=== PATIENT | male | born 1935 | race Caucasian/White ===

== ENCOUNTER 2018-04-12 20:44 | Emergency (ER) | payer MEDICARE, OTHER ==
[~2018-04-12] VITALS: Ht 172.7 cm; Wt 109.7 kg
[~2018-04-12 20:44] MED LIST: HYDR25TA4 PO
[2018-04-12] MEDS ORDERED: cloNIDine 0.1 mg tablet PO ONE (21:10)
[2018-04-12 21:57] VITALS: BP 150/94
== END 2018-04-12 22:10 | disposition home or self-care (01) ==
LOC: ER 20:45
DX: I10 Essential (primary) hypertension (principal); G31.9 Degenerative disease of nervous system, unspecified; Z85.828 Personal history of other malignant neoplasm of skin; Z79.899 Other long term (current) drug therapy
CPT/HCPCS: 70450; 99284

== ENCOUNTER 2018-09-02 15:35 | Emergency (ER) | payer MEDICARE, OTHER ==
[~2018-09-02] VITALS: Ht 175.3 cm; Wt 100.0 kg
[2018-09-02 15:41] VITALS: BP 188/88
[2018-09-02] MEDS ORDERED: tranexamic acid 100mg/ml inj. TP ONE (17:40)
== END 2018-09-02 18:52 | disposition home or self-care (01) ==
LOC: ER 15:35
DX: R04.0 Epistaxis (principal); I10 Essential (primary) hypertension; Z79.899 Other long term (current) drug therapy
CPT/HCPCS: 30901; 99284